=== PATIENT | male | born 1960 | race Hispanic/Latino ===

== ENCOUNTER 2017-06-05 22:26 | Emergency (ER) | payer OTHER ==
[2017-06-05 23:41] LABS: APPEARANCE,URINE Clear (CLEAR); BILIRUBIN,URINE Negative (NEGATIVE); COLOR,URINE Yellow (YELLOW); GLUCOSE, URINE (UA) Negative (NEGATIVE); KETONES,URINE Negative (NEGATIVE); LEUKOCYTE ESTERASE ,URINE Negative (NEGATIVE); NITRATE,URINE Negative (NEGATIVE); OCCULT BLOOD,URINE Negative (NEGATIVE); PROTEIN,URINE Negative (NEGATIVE)
[2017-06-06] MEDS ORDERED: NAPROXEN 500 MG TABLET ONE (00:20)
[2017-06-06] MEDS ORDERED: SULFAMETHOX-TMP DS 800/160 TAB ONE (00:20)
== END 2017-06-06 00:59 | disposition home or self-care (01) ==
LOC: EDH 22:26
DX: N48.89 Other specified disorders of penis (principal); R10.9 Unspecified abdominal pain; N48.30 Priapism, unspecified; I10 Essential (primary) hypertension; E11.9 Type 2 diabetes mellitus without complications; N40.0 Benign prostatic hyperplasia without lower urinary tract symptoms; Z98.890 Other specified postprocedural states
CPT/HCPCS: 76857; 81003

== ENCOUNTER 2018-06-29 22:11 | Emergency (ER) | payer OTHER ==
[2018-06-29] MEDS ORDERED: DIPHENHYDRAMINE HCL 25 MG CAPSULE ONE (23:15)
== END 2018-06-30 00:03 | disposition home or self-care (01) ==
LOC: EDH 22:11
DX: S30.861A Insect bite (nonvenomous) of abdominal wall, initial encounter (principal); L08.9 Local infection of the skin and subcutaneous tissue, unspecified; I10 Essential (primary) hypertension; E11.9 Type 2 diabetes mellitus without complications; Z98.890 Other specified postprocedural states; W57.XXXA Bitten or stung by nonvenomous insect and other nonvenomous arthropods, initial encounter; Y93.89 Activity, other specified; Y92.89 Other specified places as the place of occurrence of the external cause; Y99.8 Other external cause status
CPT/HCPCS: 99283; Q0163

== ENCOUNTER → 2021-06-07 | Outpatient (CLI) | payer OTHER | END | disposition home or self-care (01) | LOC: RAH 10:42 | PROVIDERS: ATTEND Internal Medicine | DX: R22.31 Localized swelling, mass and lump, right upper limb (principal) | CPT/HCPCS: 76882 ==